=== PATIENT | male | born 1985 | race Caucasian/White ===

== ENCOUNTER 2021-12-12 05:12 | Emergency (ER) | payer BC, OTHER ==
[2021-12-12] MEDS ORDERED: HYDROmorphone 1 MG/ML Syringe IVPUSH ONE (05:44)
[2021-12-12] MEDS ORDERED: Ondansetron 4 MG/2 ML SDV IVPUSH ONE (05:44)
[2021-12-12] MEDS ORDERED: Sodium Chloride 0.9% 1,000 ML IV SCH (05:45)
== END 2021-12-12 09:45 | disposition home or self-care (01) ==
LOC: JD.ED 05:12
DX: K80.70 Calculus of gallbladder and bile duct without cholecystitis without obstruction (principal); E66.9 Obesity, unspecified; Z86.16 Personal history of COVID-19; Z28.310 Unvaccinated for COVID-19; Z68.41 Body mass index [BMI] 40.0-44.9, adult
CPT/HCPCS: 36415; 74177; 76705; 80053; 83690; 83735; 85007; 85027; 96374; 96375; 99284; J1170; J2405; J7030

== ENCOUNTER 2022-10-06 16:07 | Emergency (ER) | payer BC ==
[2022-10-06] MEDS ORDERED: Ondansetron 4 MG/2 ML SDV IVPUSH ONE (17:13)
[2022-10-06] MEDS ORDERED: HYDROmorphone 0.5 MG/0.5 ML Syringe IVPUSH ONE ×2 (17:13→18:25)
[2022-10-06] MEDS ORDERED: Sodium Chloride 0.9% 1,000 ML IV ONE (17:13)
[2022-10-06] MEDS ORDERED: Sodium Chloride 0.9% 10 ML Syringe FLUSH PRN (17:13)
[2022-10-06 18:19] LABS: ESTIMATED GFR 101 mL/min (>60)
[2022-10-06] MEDS ORDERED: Hyoscyamine 0.125 MG Tab.SL SL ONE (20:30)
== END 2022-10-06 21:40 | disposition home or self-care (01) ==
LOC: JD.ED 16:07
DX: K80.20 Calculus of gallbladder without cholecystitis without obstruction (principal); E66.9 Obesity, unspecified; Z68.39 Body mass index [BMI] 39.0-39.9, adult; Z86.16 Personal history of COVID-19
CPT/HCPCS: 36415; 76705; 80053; 82977; 83690; 85025; 86140; 96361; 96374; 96375; 96376; 99284; A9270; J1170; J2405; J3490; J7030

== ENCOUNTER 2022-10-13 19:33 | Day surgery (SDC) | payer BC ==
[2022-10-13] MEDS ORDERED: Sodium Chloride 0.9% 10 ML Syringe FLUSH PRN (19:46)
[2022-10-13] MEDS ORDERED: Ondansetron 4 MG/2 ML SDV IVPUSH ONE (20:40)
[2022-10-13] MEDS ORDERED: Sodium Chloride 0.9% 1,000 ML IV STA (20:40)
[2022-10-13] MEDS ORDERED: HYDROmorphone 0.5 MG/0.5 ML Syringe IVPUSH ONE (20:40)
[2022-10-13] MEDS ORDERED: HYDROmorphone 0.5 MG/0.5 ML Syringe IVPUSH PRN (21:34)
[2022-10-13] MEDS ORDERED: Ondansetron 4 MG/2 ML SDV IVPUSH PRN (21:34)
[2022-10-13] MEDS ORDERED: Rocuronium 50 MG/5 ML Vial ONE (21:44)
[2022-10-13] MEDS ORDERED: ceFAZolin 2 GM Vial ONE ×2 (21:44→22:25)
[2022-10-13] MEDS ORDERED: Lidocaine 1% 2 ML ONE (21:44)
[2022-10-13] MEDS ORDERED: Ondansetron 4 MG/2 ML SDV ONE (21:44)
[2022-10-13] MEDS ORDERED: Propofol 200 MG/20 ML SDV ONE (21:45)
[2022-10-13] MEDS ORDERED: fentaNYL 100 MCG/2 ML SDV ONE (21:45)
[2022-10-13] MEDS ORDERED: Bupivacaine 0.5%/EPINEPHrine 1:200,000 50 ML MDV ONE (21:50)
[2022-10-13] MEDS ORDERED: Lidocaine 1% with EPINEPHrine 1:100,000 20 ML MDV ONE (21:50)
[2022-10-13] MEDS ORDERED: Sugammadex Sodium 200 MG/2 ML VIAL ONE (21:52)
[2022-10-13] MEDS ORDERED: HYDROmorphone 0.5 MG/0.5 ML Syringe ONE ×2 (22:33→22:45)
[2022-10-13] MEDS ORDERED: Ketorolac 30 MG/ML SDV ONE (23:46)
[2022-10-14] MEDS: fentaNYL 100 MCG/2 ML SDV IVPUSH PRN ×2 (00:57→01:07)
== END 2022-10-14 07:42 | disposition home or self-care (01) ==
LOC: JD.ED 19:33 → JD.SDS 21:40 → JD.MS 10-14 02:13 → JD.SDS 10-14 07:42
PROVIDERS: ATTEND Surgery
DX: K80.00 Calculus of gallbladder with acute cholecystitis without obstruction (principal); K82.8 Other specified diseases of gallbladder; E66.9 Obesity, unspecified; Z79.899 Other long term (current) drug therapy; Z86.16 Personal history of COVID-19; Z68.38 Body mass index [BMI] 38.0-38.9, adult
CPT/HCPCS: 36415; 47562; 80053; 82977; 83690; 85025; 86140; 96361; 96374; 96375; 99284; J0690; J1170; J1885; J2405; J2704; J3010; J3490; J7030; 00790

== ENCOUNTER 2025-03-23 18:36 | Emergency (ER) | payer BC | END 2025-03-23 23:00 | disposition home or self-care (01) | LOC: JD.ED 18:36 | DX: S70.11XA Contusion of right thigh, initial encounter (principal); I10 Essential (primary) hypertension; E66.9 Obesity, unspecified; Z68.38 Body mass index [BMI] 38.0-38.9, adult; Z86.16 Personal history of COVID-19; Z90.49 Acquired absence of other specified parts of digestive tract; W18.40XA Slipping, tripping and stumbling without falling, unspecified, initial encounter | CPT/HCPCS: 93971-26-RT; 93971-RT; 99283 ==